=== PATIENT | female | born 1995 | race Caucasian/White ===

== ENCOUNTER 2021-11-16 04:09 | Day surgery (SDC) | payer OTHER ==
[2021-11-13 14:17] VITALS: BMI 24.3
[2021-11-16 09:54] VITALS: TEMP 98.1
[2021-11-16 10:06] VITALS: RESP 16
[2021-11-16 10:18] VITALS: BP 138/66; PULSE 81
== END 2021-11-16 10:26 | disposition home or self-care (01) ==
LOC: JASU-ENDO 04:09
PROVIDERS: ATTEND Internal Medicine Gastroenterology
PROC: 0DB68ZX Excision of Stomach, Via Natural or Artificial Opening Endoscopic, Diagnostic (ICD-10-PCS; 2021-11-16)
PROC: 0DB98ZX Excision of Duodenum, Via Natural or Artificial Opening Endoscopic, Diagnostic (ICD-10-PCS; principal; 2021-11-16 09:45)
DX: K29.50 Unspecified chronic gastritis without bleeding (principal)
CPT/HCPCS: 88305-TC; 88342-TC